=== PATIENT | male | born 1985 | race Caucasian/White ===

== ENCOUNTER 2017-09-28 14:25 | Emergency (ER) | payer OTHER, SELFPAY ==
[2017-09-28 14:35] VITALS: BP 135/86; PULSE 101; RESP 14; TEMP 36.7; O2SAT 97
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
== END 2017-09-28 16:39 | disposition home or self-care (01) ==
PROVIDERS: Emergency Provider Nurse Practitioner Family; Family Provider Family Medicine; PCP Family Medicine
DX: M25.561 Pain in right knee (principal)
CPT/HCPCS: 73562; 99282; 99283

== ENCOUNTER 2017-11-15 10:36 | Emergency (ER) | payer SELFPAY ==
[2017-11-15] VITALS (9 sets, daily range): BP systolic 142–186; BP diastolic 93–159; PULSE 62–100; RESP 14–97; TEMP 36.2–36.6; O2SAT 97–99
--- NOTE | 2017-11-15 10:48 | ED.ABDPAIN ---
HPI - Abdominal Pain General Chief Complaint: Abdominal Pain Stated Complaint: ABDOMINAL PAIN Time Seen by Provider: 11/15/17 10:36 Source: patient Mode of arrival: ambulatory Limitations: no limitations History of Present Illness HPI narrative: Otherwise healthy 32-year-old male here for evaluation of right-sided abdominal and testicular pain. Patient states that it started this morning. He states that he went to go use the restroom and could not urinate and then the pain developed. He does state that his right testicle hurts but also right abdomen and right flank hurt as well. States he was only able to urinate a small amount this morning. Pain has been constant. No fevers. No travel. Related Data Previous Rx's Medication Instructions Recorded hydrocodone-acetaminophen [Brandon] 2 tab PO Q4-6H PRN #20 tab 11/15/17 ondansetron [Zofran ODT] 4 mg PO Q6-8H PRN #10 tab 11/15/17 Allergies Allergy/AdvReac Type Severity Reaction Status Date / Time No Known Drug Allergies Allergy Verified 11/15/17 10:44 Review of Systems Constitutional Denies fatigue and Denies fever(s) ENT Ears, Nose, Mouth, and Throat: Denies dizziness Cardiovascular Denies chest pain, Denies syncope, Denies palpitations and Denies dyspnea Respiratory Denies cough and Denies dyspnea Gastrointestinal Gastrointestinal: Denies abdominal pain, Denies diarrhea, Denies nausea and Denies vomiting Genitourinary Reports flank pain (Right) Comments: Right testicular pain, urinary frequency earlier today with inability to urinate Musculoskeletal Denies myalgias and Denies arthralgias Integumentary/Breasts Denies lesions, Denies rash and Denies wounds Neurologic Denies dizziness and Denies syncope Endocrine Denies fatigue and Denies palpitations Hematologic/Lymphatic Denies easy bleeding and Denies easy bruising PFSH Surgical History Status post knee surgery Family History Child Age: 12 Stroke Mother Mental health problem Sister Age: 31 Mental health problem Social History Smoking Status: Never smoker Exam Initial Vital Signs Initial Vital Signs: Vital Signs Temperature 97.1 F L 11/15/17 10:42 Pulse Rate 100 H 06/27/18 10:42 Respiratory Rate 22 11/15/17 10:42 Blood Pressure 180/100 H 11/15/17 10:42 Pulse Oximetry 99 11/15/17 10:42 Const General: cooperative, healthy appearing, No comfortable, well developed, well groomed and in distress [facility] Head: normal to inspection, normocephalic and atraumatic Resp Effort & Inspection: normal respiratory effort GI Inspection: non-distended Palpation: soft, No firm and tender (Right-sided diffuse) Other: Circumcised Testicles with normal lie however exquisitely tender with the right testicle Positive cremasteric reflex Back/Spine/Pelvis Back: CVA tenderness right Skin Lesions: no lesions Rashes: no rashes Neuro General: alert, awake and oriented x3 Extrem General: normal to inspection and capillary refill normal Course Hospital Course: test Orders Ordered: ED Orders 11/15/17 10:44 Basic Metabolic Panel Stat Complete Blood Count AUTO DIFF Stat 11/15/17 10:47 US scrotum Stat 11/15/17 11:03 Urine Microscopic Stat 11/15/17 12:01 CT kidney ureter bladder (KUB) Stat Hydromorphone HCl (Dilaudid) 1 mg IV Q4H PRN PRN Reason: Pain, Severe (7-10) Last Admin: 11/15/17 12:22 Dose: 1 mg Discontinued Medications Hydrocodone Bitart/Acetaminophen (Brandon 5/325) 2 tab PO NOW ONE Stop: 11/15/17 13:02 Hydromorphone HCl (Dilaudid) 1 mg IV NOW ONE Stop: 11/15/17 10:47 Last Admin: 11/15/17 10:53 Dose: 1 mg Sodium Chloride (Normal Saline 0.9%) 1,000 mls @ 1,000 mls/hr IV BOLUS ONE Stop: 11/15/17 11:45 Last Infusion: 11/15/17 12:18 Dose: 0 mls/hr Admin: 11/15/17 10:54 Dose: 1,000 mls/hr Lidocaine HCl 6.1 ml/ Sodium (Chloride) 56.1 mls @ 336.6 mls/hr IV NOW ONE Stop: 11/15/17 11:21 Last Infusion: 11/15/17 11:50 Dose: 0 mls/hr Admin: 11/15/17 11:29 Dose: 336.6 mls/hr Ketorolac Tromethamine (Toradol) 30 mg IV NOW ONE Stop: 11/15/17 12:01 Last Admin: 11/15/17 12:02 Dose: 30 mg Ondansetron HCl (Zofran) 4 mg IV NOW ONE Stop: 11/15/17 10:47 Last Admin: 11/15/17 10:53 Dose: 4 mg Vital Signs - 8 hr 11/15/17 10:42 11/15/17 11:10 11/15/17 11:30 Temperature 97.1 F L Pulse Rate 100 H 75 80 Respiratory Rate 22 16 16 Blood Pressure 180/100 H Blood Pressure [Left Arm] 176/125 H 168/122 H Blood Pressure [Right Arm] Pulse Oximetry 99 97 11/15/17 12:00 11/15/17 12:10 11/15/17 12:30 Temperature Pulse Rate 72 72 65 Respiratory Rate 14 18 97 H Blood Pressure Blood Pressure [Left Arm] 185/159 H 186/135 H 160/106 H Blood Pressure [Right Arm] 179/106 H Pulse Oximetry 97 97 MDM - Abdominal Pain Lab Data Attestation: I reviewed the patient's lab results. Result diagrams: 11/15/17 10:44 11/15/17 10:44 Lab Results 11/15/17 11/15/17 11/15/17 Range/Units 10:44 10:44 11:03 WBC 11.8 H (4.5-11.0) X10^3/uL RBC 5.20 (4.5-5.9) X10^6/uL Hgb 16.8 (13.5-17.5) g/dL Hct 48.2 (41-53) % MCV 92.7 (80-100) fL MCH 32.4 (26-34) PG MCHC 34.9 (30-36) % RDW 12.4 (11.6-14.8) % Plt Count 335 (150-400) X10^3/uL Neut % (Auto) 56.0 (50-75) % Lymph % (Auto) 33.4 (25-40) % Donley % (Auto) 8.7 (3-14) % Eos % (Auto) 1.3 L (2-4) % Baso % (Auto) 0.6 (0-2) % Neut # (Auto) 6600 H (8431-0075) /uL Sodium 137 (137-145) mmol/L Potassium 3.9 (3.4-5.1) mmol/L Chloride 101 (98-107) mmol/L Carbon Dioxide 24 (22-32) mmol/L BUN 15 (9-20) mg/dL Creatinine 0.90 (0.66-1.25) mg/dL Estimated GFR > 60.0 (>60) mL/min BUN/Creatinine Ratio 16.7 (6-22) Glucose 121 H (70-100) mg/dL Calcium 9.5 (8.4-10.2) mg/dL Urine RBC 0-1/hpf (0-5/HPF) Urine WBC None seen (0-5/HPF) Ur Squamous Epith Cells 1-5 /hpf Urine Bacteria Moderate (10-30) H (None) Urine Mucus 1+ H (Negative) Ur Culture Indicated? Cult not indicated Micro UA Comment Not Reportable Imaging Data Testicular ultrasound: Radiologist's impression: PROCEDURE: US SCROTUM INDICATIONS: Sudden onset right testicular pain concern for torsion TECHNIQUE: Real-time scanning was performed of the scrotum and testicles, with image documentation. Color and pulse Doppler interrogation was performed of both testicles. COMPARISON: None. FINDINGS: Right: Testicle is normal in size at 2.4 x 3.6 x 5.0 cm, and homogenous in echotexture. Epididymis is normal in overall size and morphology. No hydrocele or varicoceles. Overlying scrotal skin is normal in thickness. Left: Testicle is normal in size at 2.3 x 3.5 x 4.7 cm, and homogeneous in echotexture. Epididymis is not evaluated. No hydrocele or varicoceles. Overlying scrotal skin is normal in thickness. Doppler: Color and pulse Doppler demonstrate normal and symmetric arterial flow in both testicles. Resistive indices are normal at 0.51 right and 0.56 left. IMPRESSION: 1. No sonographic evidence of right testicular torsion. Intermittent torsion cannot be excluded although no edema is evident. Dictated by: Jim Champion M.D. on 11/15/2017 at 11:55 CT scan - abdomen: Radiologist's impression: PROCEDURE: CT KIDNEY URETER BLADDER (KUB) INDICATIONS: Right-sided flank pain history of kidney stones TECHNIQUE: Noncontrast 5 mm thick sections acquired from the diaphragms to the symphysis. 5 mm thick coronal and sagittal reformats were then performed. For radiation dose reduction, the following was used: automated exposure control, adjustment of mA and/or kV according to patient size. COMPARISON: None. FINDINGS: Image quality: Excellent. Lung bases: Partially visualized 4 mm right middle lobe nodular opacity, incompletely visualized on series 3 image one. Pain appearance of opacity is also noted within the lingula measuring 10 mm. Urinary system: Both kidneys are normal in size. Punctate left inferior renal pole calcification is present. It is nonobstructing. There is a punctate calcification within the cortex of the inferior right kidney. In addition, there is a punctate calcification at the right ureterovesicular junction with mild hydronephrosis and hydroureter. Bladder wall thickness is normal. Other solid organs: Liver is normal in size. Gallbladder demonstrates a minimal appearance of layering hyperdensity. No wall thickening.. Pancreas is normal in contours. Spleen is normal in size. No adrenal nodules. Peritoneum and bowel: Unenhanced bowel loops demonstrate normal wall thickness and caliber. No free fluid or air. Nodes and vessels: No retroperitoneal or mesenteric adenopathy by size criteria. There are scattered subcentimeter lymph nodes in the right lower quadrant. Aorta and inferior vena cava are normal in caliber. Abdominal wall: No ventral hernias. Pelvis: No free pelvic fluid. No inguinal hernias or adenopathy. Bones: No suspicious bony lesions. No vertebral body compression fractures. IMPRESSION: 1. Punctate calcification at the right ureterovesicular junction with mild hydronephrosis and hydroureter. 2. Nonobstructing left renal calcification. 3. Bilateral pulmonary nodules are present, the largest measuring 10 mm. No priors are available for comparison. Recommend interval followup as below. Fleischner Society criteria for SOLID lung nodule followup. Nodule size (mm)Low-risk patientHigh-risk patient<6 (single or multiple)No routine followup.Optional CT at 12 months. 6-8 (single or multiple)CT at 6-12 months, then optional CT at 18-24 mo.CT at 6-12 months, then CT at 18-24 months. >8 (single)CT, PET-CT, or biopsy at 3 months. Same as for low-risk pts. >8 (multiple)CT at 3-6 months, then optional CT at 18-24 mo.CT at 3-6 months, then CT at 18-24 months. Recommendations do not apply to lung cancer screening, patients with immunosuppression, or patients with known primary cancer. Dictated by: Janett Diaz M.D. on 11/15/2017 at 12:32 MDM Narrative Medical decision making narrative: Patient with a history and physical exam that was concerning for right-sided renal colic. His right testicular ultrasound was negative. He does have a punctate stone in the right UVJ. Creatinine is unremarkable. No signs of infection. Did improve after multiple doses of medication here in the emergency department. I suspect that this is the cause of his symptoms. He was informed of the pulmonary nodules that were found on his CT scan. He was instructed that he does need to make contact with the primary care doctor in order to have these further evaluated. He was given return precautions. Will send home with medications. He expressed understanding and agreement with plan Discharge Plan Departure Patient Disposition: Home, Self-Care Clinical Impression: Renal colic on right side, Incidental lung nodule, greater than or equal to 8mm Instructions: Kidney Stones -- Adult Activity Restrictions/Additional Instructions: Take all of the medications like we discussed. You do need to make contact with the primary care doctor because the lung nodules that were found on the CT scan today do need to be re-evaluated in a couple months. Return to the emergency department for any new or worsening symptoms Prescriptions: New hydrocodone-acetaminophen [Brandon] 5-325 mg tablet 2 tab PO Q4-6H PRN (Reason: pain) Qty: 20 RF: 0 ondansetron [Zofran ODT] 4 mg tablet,disintegrating 4 mg PO Q6-8H PRN (Reason: nausea and vomiting) Qty: 10 RF: 0
[2017-11-15] MEDS: HYDROMORPHONE 0.5 MG INJ 1 MG IV ×2 (10:53→12:22)
[2017-11-15] MEDS: ONDANSETRON 4 MG/2 ML INJ IV (10:53)
[2017-11-15] MEDS: SODIUM CHLORIDE 0.9% 1,000 ML 1000 ML IV (10:54)
[2017-11-15 11:28] LABS: WBC Urine None Seen (0-5/HPF)
[2017-11-15] MEDS: LIDOCAINE 2% 6.1 ML in SODIUM CHLORIDE 0.9% 50 ML 336.6 ML IV (11:29)
--- NOTE | 2017-11-15 11:30 | PC.NURSE ---
Pain not relieved by dilaudid, lidocaine 2% (6.1ml in 50 ml) started. NSR on monitor w/o ectopy.
[2017-11-15 11:36] LABS: RBC Urine 0-1/HPF (0-5/HPF); Squamous Epithelial Cell Urine 1-5 /HPF
[2017-11-15 11:37] LABS: Bacteria Urine Moderate (10-30); Culture Indicated Urine Cult Not Indicated; Mucus Urine 1+ (Negative)
--- NOTE | 2017-11-15 12:01 | DI.CT.S_ITS ---
PROCEDURE: CT KIDNEY URETER BLADDER (KUB) INDICATIONS: Right-sided flank pain history of kidney stones TECHNIQUE: Noncontrast 5 mm thick sections acquired from the diaphragms to the symphysis. 5 mm thick coronal and sagittal reformats were then performed. For radiation dose reduction, the following was used: automated exposure control, adjustment of mA and/or kV according to patient size. COMPARISON: None. FINDINGS: Image quality: Excellent. Lung bases: Partially visualized 4 mm right middle lobe nodular opacity, incompletely visualized on series 3 image one. Pain appearance of opacity is also noted within the lingula measuring 10 mm. Urinary system: Both kidneys are normal in size. Punctate left inferior renal pole calcification is present. It is nonobstructing. There is a punctate calcification within the cortex of the inferior right kidney. In addition, there is a punctate calcification at the right ureterovesicular junction with mild hydronephrosis and hydroureter. Bladder wall thickness is normal. Other solid organs: Liver is normal in size. Gallbladder demonstrates a minimal appearance of layering hyperdensity. No wall thickening.. Pancreas is normal in contours. Spleen is normal in size. No adrenal nodules. Peritoneum and bowel: Unenhanced bowel loops demonstrate normal wall thickness and caliber. No free fluid or air. Nodes and vessels: No retroperitoneal or mesenteric adenopathy by size criteria. There are scattered subcentimeter lymph nodes in the right lower quadrant. Aorta and inferior vena cava are normal in caliber. Abdominal wall: No ventral hernias. Pelvis: No free pelvic fluid. No inguinal hernias or adenopathy. Bones: No suspicious bony lesions. No vertebral body compression fractures. IMPRESSION: 1. Punctate calcification at the right ureterovesicular junction with mild hydronephrosis and hydroureter. 2. Nonobstructing left renal calcification. 3. Bilateral pulmonary nodules are present, the largest measuring 10 mm. No priors are available for comparison. Recommend interval followup as below. Fleischner Society criteria for SOLID lung nodule followup. Nodule size (mm)Low-risk patientHigh-risk patient<6 (single or multiple)No routine followup.Optional CT at 12 months. 6-8 (single or multiple)CT at 6-12 months, then optional CT at 18-24 mo.CT at 6-12 months, then CT at 18-24 months. >8 (single)CT, PET-CT, or biopsy at 3 months. Same as for low-risk pts. >8 (multiple)CT at 3-6 months, then optional CT at 18-24 mo.CT at 3-6 months, then CT at 18-24 months. Recommendations do not apply to lung cancer screening, patients with immunosuppression, or patients with known primary cancer. Dictated by: Janett Diaz M.D. on 11/15/2017 at 12:32 Approved by: Janett Diaz M.D. on 11/15/2017 at 12:44
[2017-11-15] MEDS: KETOROLAC 60 MG/2 ML VIAL 30 MG IV (12:02)
[2017-11-15 12:08] LABS: Add Manual Diff / Slide Review NO; Basophils Percent Auto 0.6 % (0-2); Eosinophils Percent Auto 1.3 % (2-4); Hematocrit 48.2 % (41-53); Hemoglobin 16.8 g/dL (13.5-17.5); Lymphocytes Percent Auto 33.4 % (25-40); Mean Corpuscular HGB Conc 34.9 % (30-36); Mean Corpuscular Hemoglobin 32.4 PG (26-34); Mean Corpuscular Volume 92.7 fL (80-100); Monocytes Percent Auto 8.7 % (3-14); Neutrophils Absolute Auto 6600 /uL (3000-5900); Platelet Count 335 X10^3/uL (150-400); Red Cell Distribution Width 12.4 % (11.6-14.8); White Blood Cell Count 11.8 X10^3/uL (4.5-11.0)
[2017-11-15 12:11] LABS: BUN Creatinine Ratio 16.7 (6-22); Blood Urea Nitrogen 15 mg/dL (9-20); Calcium 9.5 mg/dL (8.4-10.2); Carbon Dioxide 24 mmol/L (22-32); Chloride 101 mmol/L (98-107); Estimated Glomerular Filt Rate > 60.0 mL/min (>60); Glucose 121 mg/dL (70-100); HEMOLYSIS 19 (0-50); Potassium 3.9 mmol/L (3.4-5.1); Sodium 137 mmol/L (137-145)
[2017-11-15] MEDS: HYDROCODONE/ACET 5/325 TABLET 2 TAB PO (13:06)
== END 2017-11-15 14:01 | disposition home or self-care (01) ==
PROVIDERS: Emergency Provider Emergency Medicine; Family Provider Family Medicine; PCP Family Medicine
DX: N23 Unspecified renal colic (principal); R91.1 Solitary pulmonary nodule
CPT/HCPCS: 36591; 74176; 76870; 80048; 81003; 81015; 85025; 96361; 96365; 96375; 96376; 99284; J1170; J1885; J2405

== ENCOUNTER 2017-11-15 22:11 | Emergency (ER) | payer SELFPAY ==
[2017-11-15 22:19] VITALS: BP 148/105; PULSE 80; RESP 18; TEMP 36.6; O2SAT 98; BMI 23.7
--- NOTE | 2017-11-15 22:29 | PC.NURSE ---
Pt agitated when asked assessment questions stating why the fuck are you asking me these questions, I just told the binu and was here earlier, RN explained to pt that the questions were standard protocol, and asked to access his arm to start an IV and draw labs. Pt was lying on arm and RN asked to access his arm again and pt pushed ewen stand and stated to do your job fucking bitch, I hate this [facility]. RN asked pt to refrain from using vulgar language, charge nurse spoke with pt and pt consented to RN starting IV, obtain labs. Pt apologized and family at bedside apologized for pts language and temper.
--- NOTE | 2017-11-15 22:37 | ED.BACK ---
HPI - Back Pain/Injury General Chief Complaint: Back Pain/Injury Stated Complaint: STATES KIDNEY STONES Time Seen by Provider: 11/15/17 22:23 Source: patient and family Mode of arrival: ambulatory Limitations: no limitations History of Present Illness HPI Narrative: 32M presents for second time today with chief complaint of R flank and groin pain and was seen earlier with CT and US confirming kidney stone at [facility]. He felt quite good after toradol, dilaudid, and lidocaine. He went home and took a vicodin and was doing well until just before he came back with increasing pain in his RLQ and R flank. He denies fever or chills. His testicular pain from earlier is gone Complaint: other Onset (ago): hour(s) Duration: constant Similar Symptoms Previously: Yes Location: right flank Severity: severe Quality: sharp Radiation: flank Relieving factors: none Exacerbating factors: none Associated symptoms: denies other symptoms Related Data Previous Rx's Medication Instructions Recorded hydrocodone-acetaminophen [[place]] 2 tab PO Q4-6H PRN #20 tab 11/15/17 ondansetron [Zofran ODT] 4 mg PO Q6-8H PRN #10 tab 11/15/17 Allergies Allergy/AdvReac Type Severity Reaction Status Date / Time No Known Drug Allergies Allergy Verified 11/15/17 10:44 Review of Systems Review of Systems All systems reviewed & are unremarkable except as noted in HPI and below Constitutional Denies chills, Denies fever(s), Denies lethargy and Denies weakness Eyes Denies change in vision, Denies eye discharge, Denies irritation and Denies loss of vision ENT Ears, Nose, Mouth, and Throat: Denies change in voice, Denies neck pain and Denies sore throat Cardiovascular Denies chest pain, Denies irregular heart rhythm, Denies lightheadedness, Denies palpitations, Denies dyspnea, Denies dyspnea on exertion and Denies orthopnea Respiratory Denies cough, Denies dyspnea, Denies dyspnea on exertion and Denies wheezing Gastrointestinal Gastrointestinal: Denies abdominal pain, Denies change in bowel habits, Denies diarrhea, Denies nausea and Denies vomiting Genitourinary Denies hematuria, Reports flank pain, Denies urinary incontinence and Denies urinary urgency Musculoskeletal Denies neck pain Integumentary/Breasts Denies pruritus, Denies erythema, Denies rash and Denies wounds Neurologic Denies confusion, Denies loss of vision and Denies weakness Psychiatric Denies anxiety, Denies confusion, Denies depression, Denies homicidal ideation and Denies suicidal ideation Endocrine Denies palpitations Hematologic/Lymphatic Denies easy bruising Allergic/Immunologic Denies wheezing [facility] Social History Smoking Status: Never smoker Exam Narrative Exam Narrative: 32M in obvious pain, holding his L flank Initial Vital Signs Initial Vital Signs: Vital Signs Temperature 97.9 F 11/15/17 22:19 Pulse Rate 80 11/15/17 22:19 Respiratory Rate 18 11/15/17 22:19 Blood Pressure 148/105 H 11/15/17 22:19 Pulse Oximetry 98 11/15/17 22:19 Const General: cooperative, well developed and in distress Nutritional Appearance: well nourished Orientation: alert, awake, oriented x3 and not confused HENMT Head: normocephalic and atraumatic Ears: external ears normal and TM's normal bilaterally Nose: external nose normal and No nasal discharge Face and sinus: sinuses nontender, face symmetric, no sinus tenderness and No dry mucous membranes Mouth: oral mucosae normal and moist mucous membranes Teeth and gingiva: dentition normal Throat: tonsils normal and uvula midline Eyes General: appearance normal, both eyes and all related structures Eyelids: eyelids normal Conjunctivae: conjunctivae normal Sclera: sclerae normal Pupils: PERRL EOM: EOM intact bilaterally Resp Effort & Inspection: normal respiratory effort, able to speak in complete sentences, no respiratory distress and no use of accessory muscles Auscultation: clear to auscultation bilaterally, no rales, no rhonchi and no wheezes GI Inspection: non-distended Palpation: soft, no hepatosplenomegaly, No guarding, No pulsatile mass and No tender Auscultation: normal bowel sounds Back/Spine/Pelvis Back: No CVA tenderness Cervical Spine: cervical ROM normal and No pain with cervical ROM Thoracic/Lumbar Spine: thoracic and lumbar spine normal to inspection Neuro General: alert, oriented x3, gait normal and no focal motor deficits Speech: speech normal Course Orders Ordered: ED Orders 11/15/17 23:06 Basic Metabolic Panel Stat Complete Blood Count AUTO DIFF Stat 11/15/17 23:35 US renal complete Stat 11/16/17 00:30 Urine Microscopic Stat 11/16/17 01:07 Creatinine & eGFR Stat Discontinued Medications Lidocaine HCl 5.8 ml/ Sodium (Chloride) 55.8 mls @ 334.8 mls/hr IV NOW ONE Stop: 11/15/17 22:37 Last Infusion: 11/15/17 23:27 Dose: 334.8 mls/hr Admin: 11/15/17 22:44 Dose: 334.8 mls/hr Sodium Chloride (Normal Saline 0.9%) 1,000 mls @ 1,000 mls/hr IV BOLUS ONE Stop: 11/16/17 00:44 Last Infusion: 11/16/17 01:08 Dose: 1,000 mls/hr Admin: 11/16/17 00:00 Dose: 1,000 mls/hr Ketorolac Tromethamine (Toradol) 15 mg IV NOW ONE Stop: 11/15/17 22:37 Last Admin: 11/15/17 22:44 Dose: 15 mg Reevaluation(s) Reevaluation #1: patient feeling much better after above stated meds Reevaluation #2: labs back, creatinine bump to 1.8, US called, IVF ordered Reevaluation #3: Ultrasound completed, unremarkable. Patient sleeping Time: 00:39 Vital Signs - 8 hr 11/15/17 22:19 11/16/17 02:17 Temperature 97.9 F Pulse Rate 80 68 Respiratory Rate 18 15 Blood Pressure 148/105 H 140/98 H Pulse Oximetry 98 98 MDM - Back Pain/Injury Differential Diagnosis Differential diagnosis: Likely lumbar radiculopathy, sciatica, renal colic, pyelonephritis and thoracic back pain Medical Records Attestation: I reviewed the patient's medical records. Lab Data Attestation: I reviewed the patient's lab results. Result diagrams: 11/15/17 23:06 11/16/17 01:07 Lab Results 11/15/17 11/15/17 11/16/17 Range/Units 23:06 23:06 00:30 WBC 9.7 (4.5-11.0) X10^3/uL RBC 4.88 (4.5-5.9) X10^6/uL Hgb 15.8 (13.5-17.5) g/dL Hct 45.4 (41-53) % MCV 93.2 (80-100) fL MCH 32.4 (26-34) PG MCHC 34.7 (30-36) % RDW 12.5 (11.6-14.8) % Plt Count 257 (150-400) X10^3/uL Neut % (Auto) 48.9 L (50-75) % Lymph % (Auto) 37.1 (25-40) % Taney % (Auto) 11.9 (3-14) % Eos % (Auto) 1.1 L (2-4) % Baso % (Auto) 1.0 (0-2) % Neut # (Auto) 4700 (1730-2002) /uL Sodium 141 (137-145) mmol/L Potassium 3.6 (3.4-5.1) mmol/L Chloride 103 (98-107) mmol/L Carbon Dioxide 26 (22-32) mmol/L BUN 19 (9-20) mg/dL Creatinine 1.80 H (0.66-1.25) mg/dL Estimated GFR 43.9 L (>60) mL/min BUN/Creatinine Ratio 10.6 (6-22) Glucose 83 (70-100) mg/dL Calcium 9.2 (8.4-10.2) mg/dL Urine RBC 1-5/hpf (0-5/HPF) Urine WBC None seen (0-5/HPF) Urine Bacteria None seen (None) Urine Mucus 2+ H (Negative) Ur Culture Indicated? Cult not indicated Micro UA Comment Not Reportable 11/16/17 Range/Units 01:07 WBC (4.5-11.0) X10^3/uL RBC (4.5-5.9) X10^6/uL Hgb (13.5-17.5) g/dL Hct (41-53) % MCV (80-100) fL MCH (26-34) PG MCHC (30-36) % RDW (11.6-14.8) % Plt Count (150-400) X10^3/uL Neut % (Auto) (50-75) % Lymph % (Auto) (25-40) % [place]aney % (Auto) (3-14) % Eos % (Auto) (2-4) % Baso % (Auto) (0-2) % Neut # (Auto) (5465-7102) /uL Sodium (137-145) mmol/L Potassium (3.4-5.1) mmol/L Chloride (98-107) mmol/L Carbon Dioxide (22-32) mmol/L BUN (9-20) mg/dL Creatinine 1.60 H (0.66-1.25) mg/dL Estimated GFR 50.3 L (>60) mL/min BUN/Creatinine Ratio (6-22) Glucose (70-100) mg/dL Calcium (8.4-10.2) mg/dL Urine RBC (0-5/HPF) Urine WBC (0-5/HPF) Urine Bacteria (None) Urine Mucus (Negative) Ur Culture Indicated? Micro UA Comment MDM Narrative Medical decision making narrative: Patient returns for flank pain evaluation. No fever, elevated WBCs or signs of UTI. Creatinine increased, but making urine without trouble. Pain well controlled with Toradol and Lidocaine drip. Will refer to [facility]rology Discharge Plan Departure Patient Disposition: Home, Self-Care Clinical Impression: Kidney stone on right side, Abnormal blood creatinine level Discharge Date/Time: 11/16/17 02:19 Interventions: ED Discharge Assessment Last Done: 11/16/17 02:17 Instructions: Kidney Stones -- Adult Activity Restrictions/Additional Instructions: *You have been diagnosed with [ right-sided kidney stone with elevation in creatinine ] *What to do: * continue to take medications as directed *Follow up with [facility] urology, contact information provided below. Call in the morning *Return to ER if you should have any new, worsening or concerning symptoms Prescriptions: No Action hydrocodone-acetaminophen [[place]] 5-325 mg tablet 2 tab PO Q4-6H PRN (Reason: pain) Qty: 20 RF: 0 ondansetron [Zofran ODT] 4 mg tablet,disintegrating 4 mg PO Q6-8H PRN (Reason: nausea and vomiting) Qty: 10 RF: 0 Referrals: Diego Bhat MD [Non-Staff] - Kaycee Gayle DO [Primary Care Provider] -
[2017-11-15] MEDS: KETOROLAC 60 MG/2 ML VIAL 15 MG IV (22:44)
[2017-11-15] MEDS: LIDOCAINE 2% 5.8 ML in SODIUM CHLORIDE 0.9% 50 ML 334.8 ML IV (22:44)
[2017-11-15 23:12] LABS: Add Manual Diff / Slide Review NO; Eosinophils Percent Auto 1.1 % (2-4); Hematocrit 45.4 % (41-53); Hemoglobin 15.8 g/dL (13.5-17.5); Lymphocytes Percent Auto 37.1 % (25-40); Mean Corpuscular HGB Conc 34.7 % (30-36); Mean Corpuscular Hemoglobin 32.4 PG (26-34); Mean Corpuscular Volume 93.2 fL (80-100); Monocytes Percent Auto 11.9 % (3-14); Neutrophils Absolute Auto 4700 /uL (3000-5900); Neutrophils Percent Auto 48.9 % (50-75); Platelet Count 257 X10^3/uL (150-400); Red Blood Cell Count 4.88 X10^6/uL (4.5-5.9); Red Cell Distribution Width 12.5 % (11.6-14.8); White Blood Cell Count 9.7 X10^3/uL (4.5-11.0)
[2017-11-15 23:20] LABS: BUN Creatinine Ratio 10.6 (6-22); Blood Urea Nitrogen 19 mg/dL (9-20); Calcium 9.2 mg/dL (8.4-10.2); Carbon Dioxide 26 mmol/L (22-32); Chloride 103 mmol/L (98-107); Estimated Glomerular Filt Rate 43.9 mL/min (>60); Glucose 83 mg/dL (70-100); HEMOLYSIS 24 (0-50); Potassium 3.6 mmol/L (3.4-5.1); Sodium 141 mmol/L (137-145)
--- NOTE | 2017-11-15 23:35 | DI.US.S_ITS ---
PROCEDURE: US RENAL COMPLETE INDICATIONS: KNOWN KIDNEY STONES; WORSENING PAIN WITH ELEVATING CREATININ TECHNIQUE: Real-time scanning was performed of the kidneys and bladder, with image documentation. COMPARISON: [facility], CT, CT KIDNEY URETER BLADDER (KUB), 11/15/2017, 12:15. FINDINGS: Kidneys: Kidneys are normal in size. Right kidney measures 11.3 cm long; left kidney measures 12.3 cm long. Right renal cortical thickness is 1.8 cm; left renal cortical thickness is 1.5 cm. Renal cortical echotexture is normal. There is a 4 mm pelvis in the inferior pole right kidney. Possible renal stone measuring 5 cm. Mild right hydronephrosis. No suspicious solid mass lesions. Bladder: Pre-void bladder volume is 159 mL. Post-void residual is 0 mL. Pre-void images demonstrate no intraluminal masses or stones. On pre-void images, right ureter jet was not visualized. The left ureteral jet is noted with color Doppler interrogation. (Of note, ureteral jets may not be detectable in up to 25% of cases due to insufficient differences in specific gravity between ureteral and bladder urine). Miscellaneous: No free pelvic fluid. IMPRESSION: 1. Nephrolithiasis bilaterally with mild right hydronephrosis. No left hydronephrosis. Dictated by: Krystle Olivo M.D. on 11/16/2017 at 8:14 Approved by: Krystle Olivo M.D. on 11/16/2017 at 8:19
[2017-11-16] MEDS: SODIUM CHLORIDE 0.9% 1,000 ML 1000 ML IV
[2017-11-16 01:06] LABS: Bacteria Urine None Seen; WBC Urine None Seen (0-5/HPF)
[2017-11-16 01:21] LABS: Culture Indicated Urine Cult Not Indicated; Mucus Urine 2+ (Negative); RBC Urine 1-5/HPF (0-5/HPF)
[2017-11-16 01:23] LABS: Estimated Glomerular Filt Rate 50.3 mL/min (>60)
[2017-11-16 02:17] VITALS: BP 140/98; PULSE 68; RESP 15; O2SAT 98
== END 2017-11-16 02:19 | disposition home or self-care (01) ==
PROVIDERS: Emergency Provider Emergency Medicine; Family Provider Family Medicine; PCP Family Medicine
DX: N20.0 Calculus of kidney (principal); R79.9 Abnormal finding of blood chemistry, unspecified
CPT/HCPCS: 36415; 36591; 76770; 80048; 81003; 81015; 82565; 85025; 96361; 96365; 96375; 99283; 99284; J1885

== ENCOUNTER 2018-04-08 20:44 | Emergency (ER) | payer SELFPAY ==
[2018-04-08 20:51] VITALS: BP 139/89; PULSE 98; RESP 20; TEMP 36.4; O2SAT 100
--- NOTE | 2018-04-08 21:01 | ED.WOUNDLAC ---
HPI - Wound/Laceration <Naa Thayer PA-C - Last Filed: 04/08/18 22:20> General Chief Complaint: Wound/Laceration Stated Complaint: laceration to thumb left hand Time Seen by Provider: 04/08/18 21:01 Source: patient Mode of arrival: ambulatory Limitations: no limitations History of Present Illness HPI narrative: This 32-year-old right-handed male cut his left thumb on a razor blade when he was working at home putting up a door. He denies getting any foreign body in the wound or any other injury. He is not having difficulty moving his thumb, no weakness or numbness. He states he has had a tetanus shot within the last 3-4 years. He denies any other complaints Related Data Previous Rx's Medication Instructions Recorded hydrocodone-acetaminophen [[place]] 2 tab PO Q4-6H PRN #20 tab 11/15/17 ondansetron [Zofran ODT] 4 mg PO Q6-8H PRN #10 tab 11/15/17 Allergies Allergy/AdvReac Type Severity Reaction Status Date / Time No Known Drug Allergies Allergy Verified 11/15/17 10:44 Review of Systems <Naa Thayer PA-C - Last Filed: 04/08/18 22:20> Review of Systems All systems reviewed & are unremarkable except as noted in HPI and below Exam <Naa Thayer PA-C - Last Filed: 04/08/18 22:20> Narrative Exam Narrative: GENERAL APPEARANCE: Patient sitting comfortably, in no distress. LUNGS: Clear to auscultation bilaterally. HEART: Rate and rhythm regular without murmur, normal S1 and S2, no S3 or S4. DERMATOLOGIC: Left thumb dorsum the just proximal to the IP joint there is a 2.2 cm linear laceration, no gap when the thumb is neutral but up to 3 mm when flexed. Variable depth 2-4 mm. No bone, tendon or muscle visible. No foreign body visible. MUSCULOSKELETAL: Full range of motion of the right thumb, strength is intact in all ibrahim against resistance NEUROVASCULAR: Right thumb is warm and pink with brisk cap refill, sensation is grossly intact Initial Vital Signs Initial Vital Signs: Vital Signs Temperature 97.6 F 04/08/18 20:51 Pulse Rate 98 H 04/08/18 20:51 Respiratory Rate 20 04/08/18 20:51 Blood Pressure 139/89 04/08/18 20:51 Pulse Oximetry 100 04/08/18 20:51 <DO López Curtis Last Filed: 04/09/18 04:03> Initial Vital Signs Initial Vital Signs: Vital Signs Temperature 97.6 F 04/08/18 20:51 Pulse Rate 98 H 04/08/18 20:51 Respiratory Rate 20 04/08/18 20:51 Blood Pressure 139/89 04/08/18 20:51 Pulse Oximetry 100 04/08/18 20:51 Procedures <Naa Thayer PA-C - Last Filed: 04/08/18 22:20> Laceration Repair Laceration 1: Site: hand Side (If applicable): left Size (cm): 2.2 Description: linear Depth: simple, single layer Local Anesthetic: lidocaine 2% Amount of anesthesia used (mL): 4.5 Skin layer closed with: nylon Size (cm): 4-0 Number of sutures: 5 Technique: simple, interrupted Course <FLOR Feliz Last Filed: 04/08/18 22:20> Additional Information: 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 Advised on signs and symptoms of infection and he will monitor. He is able to get to urgent care if needed and will be able to get the sutures removed. Orders Ordered: Discontinued Medications Ibuprofen (Advil) 800 mg PO NOW ONE Stop: 04/08/18 21:13 Last Admin: 04/08/18 21:53 Dose: 800 mg Vital Signs - 8 hr 04/08/18 20:51 04/08/18 22:12 Temperature 97.6 F Pulse Rate 98 H 81 Respiratory Rate 20 16 Blood Pressure 139/89 Blood Pressure [Right Arm] 135/84 Pulse Oximetry 100 99 <Kaylee Ricardo DO - Last Filed: 04/09/18 04:03> Orders Ordered: Discontinued Medications Ibuprofen (Advil) 800 mg PO NOW ONE Stop: 04/08/18 21:13 Last Admin: 04/08/18 21:53 Dose: 800 mg Vital Signs - 8 hr 04/08/18 20:51 04/08/18 22:12 Temperature 97.6 F Pulse Rate 98 H 81 Respiratory Rate 20 16 Blood Pressure 139/89 Blood Pressure [Right Arm] 135/84 Pulse Oximetry 100 99 Discharge Plan Departure Patient Disposition: Home Clinical Impression: Laceration of thumb Discharge Date/Time: 04/08/18 22:13 Interventions: ED Discharge Assessment Last Done: 04/08/18 22:13 Instructions: DI for Laceration Repair Activity Restrictions/Additional Instructions: Please keep the splint on to keep the thumb straight and help it heal. Monitor as we talked about for any signs of infection such as redness, swelling, draining pus, or fever. You need to follow-up here or be seen at an urgent care if that occurs. Make sure to keep the wound clean and dry. When you are not working, it may be helpful to leave it open to air since you will have gloves on at work. If the sutures start to get crusty, you can put a little Vaseline on them. Please have the sutures removed in about 10 days. This can also be done at an urgent care or walk-in type clinic where it is convenient for you with working. Prescriptions: No Action hydrocodone-acetaminophen [[place]] 5-325 mg tablet 2 tab PO Q4-6H PRN (Reason: pain) Qty: 20 RF: 0 ondansetron [Zofran ODT] 4 mg tablet,disintegrating 4 mg PO Q6-8H PRN (Reason: nausea and vomiting) Qty: 10 RF: 0
[2018-04-08] MEDS: IBUPROFEN 400 MG TABLET 800 MG PO (21:53)
[2018-04-08 22:12] VITALS: BP 135/84; PULSE 81; RESP 16; O2SAT 99
== END 2018-04-08 22:13 | disposition home or self-care (01) ==
PROVIDERS: Emergency Provider Internal Medicine; Family Provider Family Medicine; PCP Family Medicine
DX: S61.012A Laceration without foreign body of left thumb without damage to nail, initial encounter (principal); W26.8XXA Contact with other sharp object(s), not elsewhere classified, initial encounter
CPT/HCPCS: 12001; 29130; 99282; 99283

== ENCOUNTER 2022-01-04 22:10 | Emergency (ER) | payer OTHER, MEDICAID, SELFPAY ==
[2022-01-04 22:25] VITALS: BP 134/95; PULSE 90; RESP 16; TEMP 37.2; O2SAT 99; BMI 28.8
--- NOTE | 2022-01-04 22:28 | DI.RAD.S_ITS ---
PROCEDURE: XR ANKLE RT MIN 3V INDICATIONS: right ankle swelling and pain TECHNIQUE: 3 views of the ankle were acquired. COMPARISON: None. FINDINGS: Bones: No fractures or dislocations. Ankle mortise is normally aligned. No suspicious bony lesions. Soft tissues: There is a moderate tibiotalar joint effusion. Periarticular soft tissue swelling is demonstrated laterally. Achilles tendon appears normal. IMPRESSION: 1. No fracture or dislocation. 2. Periarticular soft tissue swelling most prominent laterally. 3. Moderate tibiotalar joint effusion. Dictated by: Tonny Kumar M.D. on 01/05/2022 at 0:21 Approved by: Tonny Kumar M.D. on 01/05/2022 at 0:22
--- NOTE | 2022-01-05 00:10 | ED.LOWEXIN ---
HPI - Extremity Injury (Lower) General Chief Complaint: Extremity Injury, Lower Stated Complaint: rt ankle injury Time Seen by Provider: 01/05/22 00:07 Source: patient Mode of arrival: Wheelchair History of Present Illness HPI Narrative: Patient complains of right ankle pain. One week ago he was walking his dog. He rolled his ankle on a stone when his dog was startled by another animal. It was healing fine until today he was walking his dog again and he tilted his ankle and pain and swelling returned. Painful with attempts to stand and bear weight. Patient wearing shorts. Thigh to toes exposed on the right. Related Data Previous Rx's Medication Instructions Recorded hydrocodone 5 mg-acetaminophen 325 2 tab PO Q4-6H PRN pain #20 tabs 11/15/17 mg tablet ([place]) ondansetron 4 mg disintegrating 4 mg PO Q6-8H PRN nausea and 11/15/17 tablet (Zofran ODT) vomiting #10 tabs Allergies Allergy/AdvReac Type Severity Reaction Status Date / Time No Known Drug Allergies Allergy Verified 01/04/22 22:28 Review of Systems Review of Systems Narrative: GENERAL: Denies chills, fatigue, malaise, fever, sweats. HEENT: Denies sinus pain, ear pain, sore throat RESPIRATORY: Denies dyspnea, cough CARDIOVASCULAR: Denies chest pain, palpitations GASTROINTESTINAL: Denies nausea, vomiting, abdominal pain : Denies dysuria, frequency, hematuria MUSCULOSKELETAL: Positive muscle or bony pain SKIN: Denies rash, skin lesions NEUROLOGIC: Denies weakness, numbness ROS Unobtainable: All systems reviewed & are unremarkable except as noted in HPI and below Patient History Medical History Healthy adult male Surgical History Status post knee surgery Family History Child Age: 16 Stroke Mother Mental health problem Sister Age: 35 Mental health problem Social History Smoking Status: Never smoker Smoking Status: Never smoker alcohol intake frequency: 0-2 drinks per day Substance Use Type: does not use Exam Narrative Exam Narrative: GENERAL: in no distress, not toxic not dyspneic HEAD: Normocephalic. EYES: Pupils equal round No scleral icterus. EXTREMITIES: Examination right lower extremity. Nontender knee and foot. Thigh to toes exposed. Foot is warm soft and pink with strong pedal pulse and light touch intact to toes. Wiggles toes. There is edema and tenderness to the lateral malleolus. Limited flexion-extension and ability to stand and bear weight due to pain. NEURO: AOx4. SKIN: Warm and dry PSYCH: Not anxious, is cooperative Initial Vital Signs Initial Vital Signs: Vital Signs Temperature 98.9 F 01/04/22 22:25 Pulse Rate 90 01/04/22 22:25 Respiratory Rate 16 01/04/22 22:25 Blood Pressure 134/95 H 01/04/22 22:25 Pulse Oximetry 99 01/04/22 22:25 Oxygen Delivery Method 01/04/22 22:25 Procedures Orthopedic Splinting/Casting Injury #1: Time of procedure: 00:18 Side: right Lower Extremity Injury Location: ankle Lower Extremity Immobilizer: AirCast Other Orthopedic Equipment: crutches Post splinting neuro exam: intact Post splinting vascular exam: intact Placed by: Nursing Course Course Course Narrative: No new issues during course of stay Orders Ordered: ED Orders 01/04/22 22:28 XR ankle RT min 3V Stat Discontinued Medications Ibuprofen (Ibuprofen 400 Mg Tablet) 800 mg PO NOW ONE Stop: 01/05/22 00:16 Last Admin: 01/05/22 00:22 Dose: 800 mg Documented By: EB Reevaluation(s) Reevaluation #1: Reviewed results with patient. At this time likely ankle sprain. Crutches and ankle splint provided. Follow up with Orthopedics provided. Work note provided. Return precautions reviewed with patient. Time: 00:12 Vital Signs Vital signs: Vital Signs - 8 hr 01/04/22 22:25 Temperature 98.9 F Pulse Rate 90 Respiratory Rate 16 Blood Pressure 134/95 H Pulse Oximetry 99 Oxygen Delivery Method Room Air MDM - Extremity Injury (Lower) Differential Diagnosis Differential diagnosis: Likely ankle sprain and strain and ankle fracture Imaging Data Extremity x-ray #1: Radiologist's Impression: [address] [address] XRay Report Signed Patient: Frank Narayanan MR#: [id number] : 1985 Acct:[id number] Age/Sex: 36 / M Date of Service: 01/04/22 Loc: ED Accession Number: [id number] ?? Procedure: XR ankle RT min 3V Ordering Provider: Javier Bryan MD PROCEDURE:? XR ANKLE RT MIN 3V ? INDICATIONS:? right ankle swelling and pain ? TECHNIQUE:? 3 views of the ankle were acquired.? ? COMPARISON:? None. ? FINDINGS:? ? Bones:? No fractures or dislocations.? Ankle mortise is normally aligned.? No suspicious bony lesions.? ? Soft tissues:? There is a moderate tibiotalar joint effusion.? Periarticular soft tissue swelling is demonstrated laterally.? Achilles tendon appears normal.? ? ? IMPRESSION:? ? 1. No fracture or dislocation. ? 2. Periarticular soft tissue swelling most prominent laterally. ? 3. Moderate tibiotalar joint effusion.? Dictated by: Tonny Kumar M.D. on 01/05/2022 at 0:21 ? ? Approved by: Tonny Kumar M.D. on 01/05/2022 at 0:22 ? MDM Narrative Medical decision making narrative: Appropriate for discharge home. Exam and imaging are reassuring. No neuro deficits. Ortho referral given. Return precautions reviewed. Work note provided. Pain controlled at time of discharge Discharge Plan Departure Patient Disposition: Home Clinical Impression: Ankle sprain and strain Instructions: DI for Ankle Sprain Activity Restrictions/Additional Instructions: Use crutches and ankle splint until pain relief for weight bearing. Call provided orthopedic office tomorrow for office recheck within a week. May continue [id number] ibuprofen for pain. May use provided cool pack 20 minutes at a time for pain and swelling. Return if worse if any questions or concerns Prescriptions: No Action hydrocodone-acetaminophen [[place]] 5-325 mg tablet 2 tab PO Q4-6H PRN (Reason: pain) Qty: 20 0RF ondansetron [Zofran ODT] 4 mg tablet,disintegrating 4 mg PO Q6-8H PRN (Reason: nausea and vomiting) Qty: 10 0RF Referrals: Jose Barrios MD [Physician] - Kaycee Gayle DO [Primary Care Provider] - Stand Alone Forms: Work Release Note
[2022-01-05] MEDS: IBUPROFEN 400 MG TABLET 800 MG PO (00:22)
[2022-01-05 00:38] VITALS: BP 136/79; PULSE 85; RESP 17; O2SAT 100
== END 2022-01-05 00:40 | disposition home or self-care (01) ==
PROVIDERS: Emergency Provider Emergency Medicine; Family Provider Family Medicine; PCP Family Medicine
DX: S93.401A Sprain of unspecified ligament of right ankle, initial encounter (principal); S96.911A Strain of unspecified muscle and tendon at ankle and foot level, right foot, initial encounter; X50.1XXA Overexertion from prolonged static or awkward postures, initial encounter
CPT/HCPCS: 29540; 73610; 99283

== ENCOUNTER 2024-06-16 16:12 | Emergency (ER) | payer MEDICAID, SELFPAY ==
[2024-06-16] VITALS (7 sets, daily range): BP systolic 136–173; BP diastolic 84–94; PULSE 87–106; RESP 18; TEMP 37.6; O2SAT 94–96; BMI 30.5
--- NOTE | 2024-06-16 16:32 | ED_ITS ---
HPI - Headache General Chief Complaint: Headache Stated Complaint: Migraine all day; vomit w/some blood Time Seen by Provider: 06/16/24 16:19 Mode of arrival: Ambulatory History of Present Illness HPI Narrative: 39-year-old male with history of hypertension presents by private vehicle for 1 day of severe headache, vomiting. Patient states that he woke up around 8:00 a.m. with a severe headache and has had nonstop vomiting since. Estimates that he is torn up ?at least 30 times?. Also has associated nasal congestion. Patient states that he never gets headaches and this is extremely atypical for him. Related Data Previous Rx's Medication Instructions Recorded lisinopril 5 mg tablet 5 mg PO DAILY #90 tabs 01/25/24 ondansetron 4 mg disintegrating 4 mg PO Q8H PRN nausea and 06/16/24 tablet vomiting #30 tabs oseltamivir 75 mg capsule (Tamiflu) 75 mg PO BID 5 days #10 caps 06/16/24 Allergies Allergy/AdvReac Type Severity Reaction Status Date / Time No Known Drug Allergies Allergy Verified 06/16/24 16:20 Patient History Medical History PTSD (post-traumatic stress disorder) Shoulder pain Irregular bowel habits Hypertension Palpitations POSSIBLE RIGHT PATELLAR LIGAMENT INJURY Laceration of right knee Forehead laceration UTI (urinary tract infection) Dental abscess Healthy adult male Surgical History Status post knee surgery Family History Child Age: 19 Stroke Mother Mental health problem Sister Age: 38 Mental health problem Social History Smoking Status: Never smoker Smoking Status: Never smoker alcohol intake frequency: 0-2 drinks per day Exam Initial Vital Signs Initial Vital Signs: Vital Signs Pulse Rate 106 H 06/16/24 16:18 Respiratory Rate 18 06/16/24 16:18 Blood Pressure 173/94 H 06/16/24 16:18 Pulse Oximetry 96 06/16/24 16:18 Oxygen Delivery Method Room Air 06/16/24 16:18 Const: Awake, alert, ill-appearing, nontoxic HEENT: PERRLA, EOMI, no nuchal rigidity Cardiac: Tachycardia, regular rhythm RESP: unlabored, clear bilaterally, no wheezing GI: Soft, generalized tenderness to deep palpation without rebound or guarding Skin: Warm, Dry, intact, no rashes Neuro: AO x3, CN II-XII grossly intact, moves all extremities Course Orders Ordered: ED Orders 06/16/24 16:18 Covid-19 + FLU A/B + RSV - PCR Stat 06/16/24 16:32 CT head/brain wo con Stat EKG-12 Lead Stat 06/16/24 16:45 CBC Auto Diff [Complete Blood Count AUTO DIFF] Stat CMP [Comprehensive Metabolic Panel] Stat Discontinued Medications Diphenhydramine HCl (Diphenhydramine 50 Mg/Ml Vial) 50 mg IV NOW ONE Stop: 06/16/24 16:32 Last Admin: 06/16/24 16:50 Dose: 50 mg Documented By: THALIA Acetaminophen (Ofirmev) 1,000 mg in 100 mls @ 400 mls/hr IV NOW ONE Stop: 06/16/24 16:45 Last Infusion: 06/16/24 17:22 Dose: Infused Documented By: Admin: 06/16/24 17:00 Dose: 400 mls/hr Documented By: THALIA Sodium Chloride (Normal Saline 0.9%) 1,000 mls @ 1,000 mls/hr IV BOLUS ONE Stop: 06/16/24 17:30 Last Admin: 06/16/24 16:45 Dose: 1,000 mls/hr Documented By: THALIA Metoclopramide HCl (Metoclopramide 10 Mg/2 Ml Inj) 10 mg IV NOW ONE Stop: 06/16/24 16:32 Last Admin: 06/16/24 16:55 Dose: 10 mg Documented By: THALIA Vital Signs Vital signs: Vital Signs - 8 hr 06/16/24 16:18 06/16/24 16:18 06/16/24 16:20 Temperature 99.7 F H Pulse Rate 106 H 102 H Respiratory Rate 18 18 Blood Pressure 173/94 H 173/94 H Pulse Oximetry 96 96 Oxygen Delivery Method Room Air Room Air 06/16/24 16:30 06/16/24 16:47 06/16/24 16:47 Temperature Pulse Rate 104 H 92 H Respiratory Rate Blood Pressure 152/91 H Pulse Oximetry 96 96 Oxygen Delivery Method 06/16/24 17:00 06/16/24 17:00 Temperature Pulse Rate 91 H Respiratory Rate 18 Blood Pressure 143/84 H Pulse Oximetry 94 Oxygen Delivery Method Room Air MDM - Headache Lab Data 06/16/24 16:45 06/16/24 16:45 Labs: Lab Results 06/16/24 06/16/24 Range/Units 16:18 16:45 WBC 4.6 (4.5-11.0) X10^3/uL RBC 5.30 (4.5-5.9) X10^6/uL Hgb 16.7 (13.5-17.5) g/dL Hct 49.1 (41-53) % MCV 92.7 (80-100) fL MCH 31.6 (26-34) PG MCHC 34.0 (30-36) % RDW 12.7 (11.6-14.8) % Plt Count 197 (150-400) X10^3/uL Neut % (Auto) 61.7 (50-75) % Lymph % (Auto) 19.0 L (25-40) % [place] % (Auto) 18.8 H (3-14) % Eos % (Auto) 0.0 L (2-4) % Baso % (Auto) 0.5 (0-2) % Neut # (Auto) 2800 (5030-4204) /uL Lymph # (Auto) 900 L (7762-2327) /uL [place] # (Auto) 900 (0-900) /uL Eos # (Auto) 0 (0-450) /uL Baso # (Auto) 0 (0-100) /uL Sodium 134 L (137-145) mmol/L Potassium 3.8 (3.4-5.1) mmol/L Chloride 97 L (98-107) mmol/L Carbon Dioxide 28 (22-32) mmol/L BUN 16 (9-20) mg/dL Creatinine 1.23 (0.66-1.25) mg/dL Estimated GFR > 60 (>60) mL/min BUN/Creatinine Ratio 13.0 (6-22) Glucose 100 (70-100) mg/dL Calcium 9.7 (8.4-10.2) mg/dL Total Bilirubin 0.4 (0.2-1.3) mg/dL AST 48 (17-59) IU/L ALT 66 H (<50) IU/L Alkaline Phosphatase 65 (38-126) U/L Total Protein 8.3 H (6.3-8.2) g/dL Albumin 4.8 (3.5-5.0) g/dL Globulin 3.5 (1.7-4.1) g/dL Albumin/Globulin Ratio 1.4 (1.0-2.8) SARS-CoV-2 (PCR) Negative (Negative) Influenza A (RT-PCR) Flu a positive H (NEGATIVE) Influenza B (RT-PCR) Flu b negative (NEGATIVE) RSV (PCR) Negative (Negative) Imaging Data CT scan - head: Radiologist's Impression: ROCEDURE: CT HEAD/BRAIN WO CON INDICATIONS: SEVERE LILLY, INTRACTABLE N/V TECHNIQUE: Noncontrast 4.5 mm thick angled axial sections acquired from the foramen magnum to the vertex, with coronal and sagittal reformats. For radiation dose reduction, the following was used: automated exposure control, adjustment of mA and/or kV according to patient size. COMPARISON: (Prior imaging is not available for review from the archive at the time of this dictation.) FINDINGS: Image quality: Streak artifact can be seen through the skull base. CSF spaces: Basal cisterns are patent. No extra-axial fluid collections. Ventricles are normal in size and shape. Brain: No midline shift. No intracranial masses or hemorrhage. Nicole-white matter interface is normal. Skull and face: Calvarium and visualized facial bones are intact, without suspicious lesions. Sinuses: Visualized sinuses and mastoids are clear. IMPRESSION: No acute intracranial pathology. No acute intracranial hemorrhage is seen. To the limits of this noncontrast study, no findings of intracranial masses or mass effect can be seen. Dictated by: Frankie Torres M.D. on 06/16/2024 at 15:45 Approved by: Frankie Torres M.D. on 06/16/2024 at 15:49 MDM Narrative Medical decision making narrative: Well-appearing patient with 1 day of symptoms. Since patient was reporting a significant severe headache with no history of headaches a CT was ordered. CT noncontrast head negative for acute findings. Laboratory work unremarkable. Patient tested positive for flu A. Patient was given medications for headache. He reported resolution of his symptoms and was able to tolerate p.o.. Patient requested to go home. Antinausea medications and Tamiflu sent to pharmacy of choice. Discharge Plan Departure Patient Disposition: Home Clinical Impression: Influenza, Headache, Nausea & vomiting Instructions: DI for Influenza -- Adult Activity Restrictions/Additional Instructions: Your laboratory work and CT imaging was normal. You tested positive for the flu, which is likely the cause of your symptoms. Take Tylenol and ibuprofen as needed for fever or discomfort. Tamiflu has been prescribed for your symptoms as well as an anti-nausea medication. Prescriptions: New ondansetron 4 mg tablet,disintegrating 4 mg PO Q8H PRN (Reason: nausea and vomiting) Qty: 30 0RF oseltamivir [Tamiflu] 75 mg capsule 75 mg PO BID 5 Days Qty: 10 0RF No Action lisinopril 5 mg tablet 5 mg PO DAILY MDD One tablet daily Qty: 90 4RF Referrals: Jo Ann Kasper MD [Primary Care Provider] - Stand Alone Forms: Patient Portal/API/Survey
[2024-06-16] MEDS: SODIUM CHLORIDE 0.9% 1,000 ML 1000 ML IV (16:45)
--- NOTE | 2024-06-16 16:46 | EKG_ITS ---
[place] [id number] [place] [address] Test Date: 2024-06-16 Pat Name: Frank Narayanan Department: [facility] Room: Gender: Male Radiologist Physician: : 1985 Requested By: Order Number: [id number] Reading MD: Geovanny Small Measurements Intervals [place] Rate: 87 P: 44 MT: 148 QRS: -11 QRSD: 98 T: 27 QT: 332 QTc: 399 Interpretive Statements Normal sinus rhythm Possible Left atrial enlargement Incomplete right bundle branch block Minimal voltage criteria for LVH, may be normal variant ( [place] product ) Cannot rule out Inferior infarct , age undetermined Electronically Signed On 06-17-2024 9:45:55 PST by Geovanny Small
[2024-06-16] MEDS: diphenhydrAMINE 50 MG/ML VIAL IV (16:50)
[2024-06-16] MEDS: METOCLOPRAMIDE 10 MG/2 ML INJ IV (16:55)
[2024-06-16 17:00] LABS: Influenza A - CEPHEID Flu A POSITIVE (NEGATIVE); Influenza B - CEPHEID Flu B NEGATIVE (NEGATIVE); Respiratory Syncytial Virus Negative (Negative)
[2024-06-16] MEDS: ACETAMINOPHEN IV 1,000 MG/100 ML VIAL 400 MG IV (17:00)
[2024-06-16 17:02] LABS: COVID-19 CEPHEID 4-PLEX PCR Negative (Negative)
[2024-06-16 17:34] LABS: Add Manual Diff / Slide Review NO; Basophils Absolute Auto 0 /uL (0-100); Basophils Percent Auto 0.5 % (0-2); Eosinophils Absolute Auto 0 /uL (0-450); Hematocrit 49.1 % (41-53); Hemoglobin 16.7 g/dL (13.5-17.5); Lymphocytes Absolute Auto 900 /uL (1100-4500); Mean Corpuscular Hemoglobin 31.6 PG (26-34); Mean Corpuscular Volume 92.7 fL (80-100); Monocytes Absolute Auto 900 /uL (0-900); Monocytes Percent Auto 18.8 % (3-14); Neutrophils Absolute Auto 2800 /uL (1500-7000); Neutrophils Percent Auto 61.7 % (50-75); Platelet Count 197 X10^3/uL (150-400); Red Cell Distribution Width 12.7 % (11.6-14.8); White Blood Cell Count 4.6 X10^3/uL (4.5-11.0)
[2024-06-16 17:35] LABS: Alanine Aminotransferase 66 IU/L (<50); Albumin 4.8 g/dL (3.5-5.0); Albumin Globulin Ratio 1.4 (1.0-2.8); Alkaline Phosphatase 65 U/L (38-126); Aspartate Aminotransferase 48 IU/L (17-59); Bilirubin Total 0.4 mg/dL (0.2-1.3); Blood Urea Nitrogen 16 mg/dL (9-20); Calcium 9.7 mg/dL (8.4-10.2); Carbon Dioxide 28 mmol/L (22-32); Chloride 97 mmol/L (98-107); Estimated Glomerular Filt Rate > 60 mL/min (>60); Globulin 3.5 g/dL (1.7-4.1); Glucose 100 mg/dL (70-100); HEMOLYSIS 17 (0-50); Potassium 3.8 mmol/L (3.4-5.1); Sodium 134 mmol/L (137-145); Total Protein 8.3 g/dL (6.3-8.2)
== END 2024-06-16 18:05 | disposition home or self-care (01) ==
PROVIDERS: Emergency Provider Emergency Medicine; PCP Family Medicine
DX: J10.1 Influenza due to other identified influenza virus with other respiratory manifestations (principal); R51.9 Headache, unspecified; R11.2 Nausea with vomiting, unspecified; I10 Essential (primary) hypertension; F43.10 Post-traumatic stress disorder, unspecified
CPT/HCPCS: 0241U; 36415; 70450; 80053; 85025; 93005; 96365; 96375; 99284; J0134; J1200; J2765

== ENCOUNTER 2024-10-09 12:34 | Emergency (ER) | payer OTHER, SELFPAY ==
[2024-10-09] VITALS (13 sets, daily range): BP systolic 151–169; BP diastolic 92–117; PULSE 74–111; RESP 15–23; TEMP 36.8–37.2; O2SAT 95–98; BMI 34.1
[2024-10-09 13:06] LABS: INR 0.9 (0.9-1.3); Prothrombin Time 10.6 SECONDS (9.4-12.5)
[2024-10-09 13:11] LABS: Alanine Aminotransferase 71 IU/L (<50); Albumin 4.4 g/dL (3.5-5.0); Albumin Globulin Ratio 1.6 (1.0-2.8); Alkaline Phosphatase 83 U/L (38-126); Aspartate Aminotransferase 55 IU/L (17-59); Bilirubin Total 0.7 mg/dL (0.2-1.3); Blood Urea Nitrogen 19 mg/dL (9-20); Calcium 9.5 mg/dL (8.4-10.2); Carbon Dioxide 27 mmol/L (22-32); Chloride 102 mmol/L (98-107); Estimated Glomerular Filt Rate > 60 mL/min (>60); Globulin 2.8 g/dL (1.7-4.1); Glucose 139 mg/dL (70-99); HEMOLYSIS 16 (0-50); Sodium 138 mmol/L (137-145); Total Protein 7.2 g/dL (6.3-8.2)
[2024-10-09 13:21] LABS: Add Manual Diff / Slide Review NO; Basophils Absolute Auto 100 /uL (0-100); Eosinophils Absolute Auto 100 /uL (0-450); Eosinophils Percent Auto 1.3 % (2-4); Hematocrit 44.2 % (41-53); Hemoglobin 15.2 g/dL (13.5-17.5); Lymphocytes Absolute Auto 2500 /uL (1100-4500); Lymphocytes Percent Auto 35.7 % (25-40); Mean Corpuscular HGB Conc 34.5 % (30-36); Mean Corpuscular Volume 95.8 fL (80-100); Monocytes Absolute Auto 500 /uL (0-900); Monocytes Percent Auto 6.8 % (3-14); Neutrophils Absolute Auto 3900 /uL (1500-7000); Neutrophils Percent Auto 55.2 % (50-75); Platelet Count 245 X10^3/uL (150-400); Red Blood Cell Count 4.61 X10^6/uL (4.5-5.9); Red Cell Distribution Width 12.9 % (11.6-14.8); White Blood Cell Count 7.1 X10^3/uL (4.5-11.0)
[2024-10-09 13:23] LABS: PTT Partial Thromboplastin Tim 34 SECONDS (25.1-36.5)
--- NOTE | 2024-10-09 13:31 | ED.GIBLEED ---
HPI - GI Bleed General Chief complaint: GI Bleed Stated complaint: vomiting coffee ground like substance Time Seen by Provider: 10/09/24 13:28 Source: patient Mode of arrival: Family Vehicle History of Present Illness HPI Narrative: 39-year-old gentleman history of alcohol use, abuse, hypertension, noncompliant, with medication, presents with coffee-ground, emesis, since Monday intermittently with worsening, abdominal pain, today along with continued coffee-ground, emesis, and back pain. Patient last drink was on Monday. Patient denies chest pain shortness of breath shortness of breath diarrhea. Other than what is stated 14 point review of system is negative. Related Data Previous Rx's Medication Instructions Recorded lisinopril 5 mg tablet 5 mg PO DAILY #90 tabs 01/25/24 ondansetron 4 mg disintegrating 4 mg PO Q8H PRN nausea and 06/16/24 tablet vomiting #30 tabs pantoprazole 40 mg tablet,delayed 40 mg PO DAILY #30 tabs 10/09/24 release (Protonix) Allergies Allergy/AdvReac Type Severity Reaction Status Date / Time No Known Drug Allergies Allergy Verified 06/16/24 16:20 Review of Systems Review of Systems ROS Unobtainable: All systems reviewed & are unremarkable except as noted in HPI and below Patient History Medical History PTSD (post-traumatic stress disorder) Shoulder pain Irregular bowel habits Hypertension Palpitations POSSIBLE RIGHT PATELLAR LIGAMENT INJURY Laceration of right knee Forehead laceration UTI (urinary tract infection) Dental abscess Healthy adult male Surgical History Status post knee surgery Family History Child Age: 19 Stroke Mother Mental health problem Sister Age: 38 Mental health problem alcohol intake frequency: 0-2 drinks per day Exam Narrative Exam Narrative: GENERAL: [39] year old patient appears stated age. Well-developed patient, in mild distress. HEAD: Atraumatic. Normocephalic. EYES: Pupils equal round and reactive. Extraocular motions intact. No scleral icterus. No injection or drainage. ENT: Nose without bleeding, purulent drainage. Throat without erythema, tonsillar hypertrophy or exudate. Airway patent. NECK: Trachea midline. Non tender CARDIOVASCULAR: Regular rate and rhythm without murmurs, gallops, or rubs. RESPIRATORY: Clear to auscultation. Breath sounds equal bilaterally. No wheezes, rales, or rhonchi. GASTROINTESTINAL: Abdomen soft, LLE TTP, nondistended. EXTREMITIES: No edema or joint tenderness. BACK: Nontender without deformity or crepitance. No flank tenderness. NEURO: AOx3. SKIN: No rash or erythema of visible areas Initial Vital Signs Initial Vital Signs: Vital Signs Temperature 98.9 F 10/09/24 12:39 Pulse Rate 92 H 10/09/24 12:39 Respiratory Rate 16 10/09/24 12:39 Blood Pressure 169/113 H 10/09/24 12:39 Pulse Oximetry 96 10/09/24 12:39 Oxygen Delivery Method Room Air 10/09/24 12:39 Course Orders Ordered: ED Orders 10/09/24 12:50 Complete Blood Count AUTO DIFF Stat Comprehensive Metabolic Panel Stat PTT Partial Thromboplastin Narinder Stat Prothrombin Time INR Stat 10/09/24 13:33 CT angio Abd/Pel GI Bleed Stat Ondansetron HCl (Ondansetron 4 Mg/2 Ml Inj) 4 mg IV NOW PRN PRN Reason: Nausea And Vomiting Last Admin: 10/09/24 13:52 Dose: 4 mg Documented By: ALESSANDRA Ondansetron HCl (Ondansetron 4 Mg Odt) 4 mg PO NOW PRN PRN Reason: Nausea And Vomiting Discontinued Medications Lactated Ringer's (Lactated Ringers) 1,000 mls @ 1,000 mls/hr IV BOLUS ONE Stop: 10/09/24 14:33 Last Admin: 10/09/24 13:52 Dose: 1,000 mls/hr Documented By: ALESSANDRA Pantoprazole Sodium (Pantoprazole 40 Mg Vial) 80 mg IV NOW ONE Stop: 10/09/24 13:35 Last Admin: 10/09/24 13:53 Dose: 80 mg Documented By: ALESSANDRA Vital Signs Vital signs: Vital Signs - 8 hr 10/09/24 12:39 10/09/24 12:58 10/09/24 13:00 Temperature 98.9 F Pulse Rate 92 H 109 H 111 H Respiratory Rate 16 19 22 Blood Pressure 169/113 H Pulse Oximetry 96 96 95 Oxygen Delivery Method Room Air 10/09/24 13:30 10/09/24 13:51 10/09/24 13:51 Temperature Pulse Rate 105 H 102 H Respiratory Rate 20 Blood Pressure 158/93 H Pulse Oximetry 96 98 Oxygen Delivery Method 10/09/24 14:00 10/09/24 14:00 10/09/24 14:30 Temperature Pulse Rate 92 H 92 H Respiratory Rate 23 Blood Pressure 151/92 H Pulse Oximetry 96 98 Oxygen Delivery Method 10/09/24 15:00 Temperature Pulse Rate 88 Respiratory Rate 23 Blood Pressure Pulse Oximetry 96 Oxygen Delivery Method MDM - GI Bleed Lab Data 10/09/24 12:50 10/09/24 12:50 Labs: Lab Results 10/09/24 Range/Units 12:50 WBC 7.1 (4.5-11.0) X10^3/uL RBC 4.61 (4.5-5.9) X10^6/uL Hgb 15.2 (13.5-17.5) g/dL Hct 44.2 (41-53) % MCV 95.8 (80-100) fL MCH 33.0 (26-34) PG MCHC 34.5 (30-36) % RDW 12.9 (11.6-14.8) % Plt Count 245 (150-400) X10^3/uL Neut % (Auto) 55.2 (50-75) % Lymph % (Auto) 35.7 (25-40) % [place] % (Auto) 6.8 (3-14) % Eos % (Auto) 1.3 L (2-4) % Baso % (Auto) 1.0 (0-2) % Neut # (Auto) 3900 (1254-1968) /uL Lymph # (Auto) 2500 (3141-9517) /uL [place] # (Auto) 500 (0-900) /uL Eos # (Auto) 100 (0-450) /uL Baso # (Auto) 100 (0-100) /uL PT 10.6 (9.4-12.5) SECONDS INR 0.9 (0.9-1.3) APTT 34 (25.1-36.5) SECONDS Sodium 138 (137-145) mmol/L Potassium 4.0 (3.4-5.1) mmol/L Chloride 102 (98-107) mmol/L Carbon Dioxide 27 (22-32) mmol/L BUN 19 (9-20) mg/dL Creatinine 1.12 (0.66-1.25) mg/dL Estimated GFR > 60 (>60) mL/min BUN/Creatinine Ratio 17.0 (6-22) Glucose 139 H (70-99) mg/dL Calcium 9.5 (8.4-10.2) mg/dL Total Bilirubin 0.7 (0.2-1.3) mg/dL AST 55 (17-59) IU/L ALT 71 H (<50) IU/L Alkaline Phosphatase 83 (38-126) U/L Total Protein 7.2 (6.3-8.2) g/dL Albumin 4.4 (3.5-5.0) g/dL Globulin 2.8 (1.7-4.1) g/dL Albumin/Globulin Ratio 1.6 (1.0-2.8) Imaging Data CT scan - abdomen/pelvis: Radiologist's Impression: [address] [address] [address] Scan Report Signed Patient: Frank Narayanan MR#: [id number] : 1985 Acct:[id number] Age/Sex: 39 / M Date of Service: 10/09/24 Loc: ED Accession Number: [id number] Procedure: CT angio Abd/Pel GI Bleed Ordering Provider: Steffen Chairez D.O. PROCEDURE: CT ANGIO ABD/PEL GI BLEED INDICATIONS: abd pain/n/v/gi bleed TECHNIQUE: After the administration of intravenous contrast, 2.5 mm thick sections acquired from the diaphragm to the symphysis. 10 mm maximum-intensity projection (MIP) reformats were then acquired. For radiation dose reduction, the following was used: automated exposure control. COMPARISON: None. FINDINGS: Image Quality: Diagnostic. Abdominal aorta: No aortic aneurysm or evidence of acute aortic syndrome. Mesenteric arteries: Patent without hemodynamically significant stenosis. Renal arteries: Patent without hemodynamically significant stenosis. OTHER: Lower Chest: Cardiomegaly. Liver: No solid mass. Gallbladder: No radiopaque gallstones or wall thickening. Biliary ducts: No biliary dilation. Pancreas: No ductal dilation. Spleen: Size is within normal limits. Adrenal Glands: No adrenal nodules. Kidneys and Ureters: No hydronephrosis. No solid mass. No complex renal cystic lesion which requires follow up. Small burden of bilateral, punctate, nonobstructing nephrolithiasis. Stomach and Bowel: Mucosal fold thickening of the jejunum. No extraluminal contrast within the small or large bowel. No significant diverticular disease. Normal appendix. Peritoneum: No abnormal intraperitoneal fluid. No free air. Ventral Wall: Small umbilical hernia containing fat. Abdominal Nodes: No retroperitoneal or mesenteric adenopathy by size criteria. Vessels: Aorta and inferior vena cava are normal in size. PELVIS: Pelvic Organs: Unremarkable. Bladder: Unremarkable. Pelvic Nodes: No enlarged lymph nodes. Miscellaneous: Small right indirect inguinal hernia containing fat. Bones: No aggressive osseous abnormality. IMPRESSION: Enteritis of the jejunum. No evidence of active GI hemorrhage. Small burden of bilateral, punctate, nonobstructing nephrolithiasis. Dictated by: Gage Henderson M.D. on 10/09/2024 at 14:49 Approved by: Gage Henderson M.D. on 10/09/2024 at 14:53 MDM Narrative Medical decision making narrative: All lab work, vital signs, nurse triage note, medication list, previous ER visits all reviewed, including CT scan which showed enteritis of the jejunum no evidence of active GI hemorrhage and small burden of bilateral punctate nonobstructing nephrolithiasis. No white count hemoglobin is 15.2 platelets 245 INR is 0.9. AST 55 ALT 71. Differential diagnosis includes GI bleed upper versus lower alcoholic gastritis GERD DC home on Protonix prescription Discharge Plan Departure Patient Disposition: Home Clinical Impression: Acute alcoholic gastritis Qualifiers: Gastritis bleeding: with bleeding Qualified Code(s): K29.21 - Alcoholic gastritis with bleeding Instructions: DI for Gastric Ulcer Activity Restrictions/Additional Instructions: Return with new or worsening symptoms. Take your medicines as directed. Avoid alcohol use. Prescriptions: New pantoprazole [Protonix] 40 mg tablet,delayed release (DR/EC) 40 mg PO DAILY Qty: 30 0RF No Action lisinopril 5 mg tablet 5 mg PO DAILY MDD One tablet daily Qty: 90 4RF ondansetron 4 mg tablet,disintegrating 4 mg PO Q8H PRN (Reason: nausea and vomiting) Qty: 30 0RF Referrals: Jo Ann Kasper MD [Primary Care Provider] - Stand Alone Forms: Patient Portal/API/Survey
[2024-10-09] MEDS: LACTATED RINGERS 1,000 ML 1000 ML IV (13:52)
[2024-10-09] MEDS: ONDANSETRON 4 MG/2 ML INJ IV (13:52)
[2024-10-09] MEDS: PANTOPRAZOLE 40 MG VIAL 80 MG IV (13:53)
--- NOTE | 2024-10-09 16:07 | PC.NURSE ---
STATED WE DO NOT NEED URINE SAMPLE
== END 2024-10-09 16:11 | disposition home or self-care (01) ==
PROVIDERS: Emergency Provider Family Medicine; PCP Family Medicine
DX: K29.21 Alcoholic gastritis with bleeding (principal)
CPT/HCPCS: 36415; 74174; 80053; 85025; 85610; 85730; 96361; 96374; 96375; 99284; J2405; J2470; Q9967

== ENCOUNTER 2025-01-27 12:29 | Day surgery (SDC) | payer OTHER, SELFPAY ==
--- NOTE | 2025-01-27 | PATH_ITS ---
[facility] Accession Number: [id number] No. of containers..01 Tissue . 01 Material submitted: . gastrointestinal site - GASTRIC BIOPSY . 01 Clinical history: . GASTRITIS VERSUS PORTAL HYPERTENSION HYPERTROPHY . 01 Diagnosis: STOMACH, BIOPSY: Helicobacter pylori gastritis. Scattered forms morphologically consistent with Helicobacter pylori seen on H/E stain. Negative for intestinal metaplasia. Negative for dysplasia or malignancy. V 02/06/2025 1524 Local . 01 Electronically signed: . Kannan Daily MD, PhD, Pathologist NPI- [id number] . 01 Gross description: . Received in formalin with two identifiers and gasric, are fur soft law tissue fragments ranging from 0.3 to 0.5 cm in greatest dimension. Entirely submitted in cassette A1. (AER:[id number]) /MELE 02/04/2025 0119 Local . 01 Pathologist provided ICD-10: K29.70, B96.81 . 01 CPT . 128045 Specimen Comment: A courtesy copy of this report has been sent to [phone] Performed at: [address] [facility] [address] [address], [place], [place] [id number] MD Tonny Rudolph MD Phone: [phone]
--- NOTE | 2025-01-27 12:28 | P.HP_ITS ---
History of Present Illness History of Present Illness Date Patient Seen: 01/27/25 Chief complaint: SDC Narrative: GI bleed and history of anemia [facility] Medical History (Updated 10/24/24 @ 00:00 by ) Lower GI bleed Upper GI bleed PTSD (post-traumatic stress disorder) Shoulder pain Irregular bowel habits Hypertension Palpitations POSSIBLE RIGHT PATELLAR LIGAMENT INJURY Laceration of right knee Forehead laceration UTI (urinary tract infection) Dental abscess Healthy adult male Surgical History Status post knee surgery Family History Child Age: 19 Stroke Mother Mental health problem Sister Age: 38 Mental health problem Social History (Updated 01/02/25 @ 13:10 by Blaze Elise MA) marital status: unknown household members: none lives independently: Yes Meds Home Medications and Allergies Allergies Allergy/AdvReac Type Severity Reaction Status Date / Time No Known Drug Allergies Allergy Verified 01/02/25 13:06 Assessment & Plan Assessment & Plan narrative: History of upper GI bleed though unclear if only an upper GI bleed. Anemia as well. Risks, benefits, alternatives have been explained to perform upper endoscopy and colonoscopy. Time-Based Coding :: [TOTAL MINUTES] spent with patient and on the chart (including review of chart, obtaining history, exam, reviewing outside data, placing orders, documenting exam and treatment plan, and counseling patient) on [DATE]. PROFEE Mail Caller Document charge(s): No
--- NOTE | 2025-01-27 12:30 | P.OP.EGD&C_ITS ---
Operative Date/Time/Diagnoses Date of procedure: 01/27/25 Time of procedure: 14:53 Pre-op diagnosis: See indication and findings Post-op diagnosis: same Procedure & Clinicians Study performed: EGD and colonoscopy Same procedure(s) as scheduled: Yes Indications: Anemia and history of upper GI bleed with hematemesis Surgeon: Joseph Rivas Anesthesia Type: Other Procedure Notes Procedure in detail: After informed consent was obtained the patient was placed in left lateral decubitus position. The video upper scope was placed into the oropharynx and with the patient's help swallowed into the esophagus. The esophagus stomach and duodenal were carefully evaluated. On withdrawal, retroflexed view the GE junction was performed. The scope was removed. The patient tolerated procedure well. The patient was then turned in the colonoscope was introduced the rectum slowly advanced cecum. Preparation was good. On slow withdrawal mucosa was carefully evaluated. The scope was removed. The patient tolerated procedure well. Blood loss none Complications none Sedation mac Findings EGD 1. Normal esophagus 2. Stomach with swollen folds that are beefy red consistent with gastropathy portal hypertension. Biopsies taken to rule out Helicobacter 3. Normal duodenal bulb and sweep. Colonoscopy 1. Normal colonoscopy to cecum Patient should have follow-up colonoscopy in 10 years. We will be in touch r egarding biopsies none be most interested to see whether there is signs of gastropathy of portal hypertension.
[2025-01-27 13:51] VITALS: BP 151/107; PULSE 82; RESP 16; TEMP 36.3; O2SAT 96
[2025-01-27] MEDS: LACTATED RINGERS 1,000 ML 42 ML IV (13:53)
[2025-01-27 14:59] VITALS: BP 109/78; PULSE 82; RESP 22; TEMP 36.1; O2SAT 98
[2025-01-27 15:02] VITALS: BP 115/83; PULSE 77; RESP 18; O2SAT 97
[2025-01-27 15:09] VITALS: BP 127/84; PULSE 80; RESP 28
[2025-01-27 15:12] VITALS: BP 128/88; PULSE 79; RESP 14; TEMP 36.3; O2SAT 97
== END 2025-01-27 15:26 | disposition home or self-care (01) ==
PROVIDERS: PCP Family Medicine; Referring Provider Internal Medicine Gastroenterology; Visit Provider Internal Medicine Gastroenterology
PROC: 0DJ08ZZ Inspection of Upper Intestinal Tract, Via Natural or Artificial Opening Endoscopic (ICD-10-PCS; CPT 45378; principal; 2025-01-27 14:00)
PROC: 0DJD8ZZ Inspection of Lower Intestinal Tract, Via Natural or Artificial Opening Endoscopic (ICD-10-PCS; CPT 45378; 2025-01-27 14:00)
DX: D64.9 Anemia, unspecified (principal); Z87.19 Personal history of other diseases of the digestive system; K29.60 Other gastritis without bleeding; B96.81 Helicobacter pylori [H. pylori] as the cause of diseases classified elsewhere
CPT/HCPCS: 45378; 43239; J2704